=== PATIENT | female | born 1995 | race Two or more races ===

== ENCOUNTER 2020-06-12 16:34 | Emergency (ER) | payer OTHER ==
[~2020-06-12] VITALS: Ht 165.1 cm; Wt 85.0 kg
[2020-06-12 16:57] LABS: BASOPHILS % (AUTO) 1 % (0-1); EOSINOPHILS % (AUTO) 1 % (1-7); LYMPHOCYTES % (AUTO) 22 % (22-44); MEAN CORPUSCULAR HEMOGLOBIN 31.4 pg (27.0-34.8); MEAN CORPUSCULAR HGB CONC 33.7 g/dL (32.4-35.8); MONOCYTES % (AUTO) 8 % (2-9); NEUTROPHILS % (AUTO) 69 % (42-75); PLATELET COUNT 321 x10^3/uL (130-400); RED BLOOD COUNT 4.22 x10^6/uL (3.82-5.3)
[2020-06-12 17:03] LABS: CHLORIDE 109 mmol/L (98-107); MD NO
[2020-06-12 17:09] LABS: ALBUMIN 4.2 g/dL (3.4-5.0); ANION GAP 4 mmol/L (5-15); CALCIUM 9.2 mg/dL (8.5-10.1); CREATININE 0.78 mg/dL (0.55-1.02)
--- NOTE | 2020-06-12 17:48 | NUR ---
TASK RN: AIDA COLLECTED AND SENT TO LAB. PT TO US AT THIS TIME.
[2020-06-12 18:26] LABS: MICROSCOPIC INDICATED
[2020-06-12 18:51] VITALS: BP 112/99
== END 2020-06-12 18:53 | disposition home or self-care (01) ==
LOC: ED 18:00
DX: O20.0 Threatened abortion (principal); N93.9 Abnormal uterine and vaginal bleeding, unspecified; Z3A.01 Less than 8 weeks gestation of pregnancy
CPT/HCPCS: 36415; 76830; 80048; 81001; 82040; 84702; 84703; 85025; 86901; 87086; 87147; 99284

== ENCOUNTER 2020-06-15 11:50 | Emergency (ER) | payer OTHER ==
[~2020-06-15] VITALS: Ht 167.6 cm; Wt 86.0 kg
--- NOTE | 2020-06-15 12:26 | NUR ---
LAB IN TO DRAW.
[2020-06-15 13:05] VITALS: BP 122/61
== END 2020-06-15 13:19 | disposition home or self-care (01) ==
LOC: ED 12:29
DX: O03.9 Complete or unspecified spontaneous abortion without complication (principal)
CPT/HCPCS: 36415; 84702; 99283